=== PATIENT | female | born 1925 | race Caucasian/White ===

== ENCOUNTER 2017-04-12 17:41 | Emergency (ER) | payer MEDICARE, BC ==
[2017-04-12] MEDS ORDERED: Haloperidol INJ IV/IM* 5 MG/ML AMP IM ONE (18:13)
[2017-04-12] MEDS ORDERED: LORazepam INJ* 2 MG/ML 1 ML VIAL IM ONE (18:13)
[2017-04-12] MEDS ORDERED: LORazepam INJ* 2 MG/ML 1 ML VIAL ONE (18:14)
[2017-04-12] MEDS ORDERED: Haloperidol INJ IV/IM* 5 MG/ML AMP ONE (18:14)
--- NOTE | 2017-04-12 20:02 | RAD ---
INDICATION: Head injury. COMPARISON: There are no prior studies available for comparison. TECHNIQUE: Contiguous axial sections of the brain were obtained from the skull base to the vertex without contrast. FINDINGS: The ventricles, cisterns and sulci are enlarged consistent with diffuse atrophy. There are small areas of decreased density in the subcortical and periventricular white matter suggestive of mild chronic small vessel ischemic changes. No other focal abnormality or mass effect is seen. There is no evidence for hemorrhage. No significant focal osseous abnormality is seen. The visualized portion of the paranasal sinuses and mastoid air cells appear clear. IMPRESSION: NO EVIDENCE FOR ACUTE INTRACRANIAL ABNORMALITY.
--- NOTE | 2017-04-12 20:06 | RAD ---
INDICATION: Trauma. COMPARISON: There are no prior studies available for comparison. TECHNIQUE: Contiguous axial sections were obtained from the skull base through the T1 vertebra. Images were reconstructed in the sagittal and coronal planes. FINDINGS: There is straightening of the cervical spine with loss of the normal cervical lordosis. No prevertebral soft tissue swelling or fracture is seen. At the C1-C2 level there is severe osteoarthritic change in the facet joint on the left side. There is mild spinal canal narrowing on the left side. At the C2-C3 level there is mild posterior uncinate process spurring. No significant spinal canal narrowing is present. There is moderate neural foraminal narrowing on the right side. At the C3-C4 level there is mild posterior uncinate process spurring. No significant spinal canal narrowing is present. There is moderate to severe bilateral neural foraminal narrowing. At the C4-C5 level there is mild posterior uncinate process spurring. There is mild spinal canal narrowing and moderate to severe bilateral neural foraminal narrowing. At C5-C6 level there is moderate posterior uncinate process spurring. There is mild spinal canal narrowing and moderate bilateral neural foraminal narrowing. At the C6-C7 level there is mild posterior uncinate process spurring. No significant spinal canal narrowing is present. There is mild to moderate bilateral neural foraminal narrowing. IMPRESSION: 1. STRAIGHTENING OF THE CERVICAL SPINE, NO EVIDENCE FOR FRACTURE OR SUBLUXATION. 2. MODERATE DIFFUSE CERVICAL SPONDYLOSIS.
--- NOTE | 2017-04-12 20:26 | ED ---
Andrea Sky Alfonso, scribed for Owen Dumont MD on 04/12/17 at 1845 . 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 The patient rates the pain 0/10 in severity. Symptoms aggravated by nothing. Symptoms alleviated by nothing. Padder reports agitation and confusion, and hematoma to left temporal lobe. Padder denies seizure, laceration, pain, dyspnea, syncope, nausea and LOC. PMHx includes dementia. - History Of Current Complaint Chief Complaint: EDHeadInjury Stated Complaint: FALL Time Seen by Provider: 04/12/17 18:00 Hx Obtained From: Family/[facility] - [facility] Hx From Patient Unobtainable Due To: Dementia Mechanism Of Injury: Fall From Height Of: Onset/Duration: Started Hours Ago Onset of Pain: Post Accident Severity Currently: Mild Pain Intensity: 0 Pain Scale Used: 0-10 Numeric Location of Head Injury: Temporal - left temporal lobe Associated Signs And Symptoms: Other: - Padder reports agitation and confusion, and hematoma to left temporal lobe. Padder denies seizure, laceration, pain, dyspnea, syncope, nausea and LOC. - Allergies/Home Medications Allergies/Adverse Reactions: Allergies Allergy/AdvReac Type Severity Reaction Status Date / Time Atorvastatin [From Lipitor] Allergy Unknown Verified 04/12/17 18:24 Reaction Details Home Medications: Home Medications Acetaminophen TAB* [Tylenol TAB*] 650 mg PO BID PRN 04/12/17 [History Confirmed 04/12/17] Aspirin EC Low Dose* [Ecotrin EC Low Dose 81 MG*] 81 mg PO DAILY 04/12/17 [ History Confirmed 04/12/17] Atenolol TAB* [Tenormin TAB* 25 MG] 25 mg PO DAILY 04/12/17 [History Confirmed 04/12/17] Divalproex Sprinkle CAP* [Depakote Sprinkle CAP*] 250 mg PO BID 04/12/17 [ History Confirmed 04/12/17] Ferrous Sulfate TAB* 325 mg PO DAILY 04/12/17 [History Confirmed 04/12/17] Polyethylene Glycol 3350* [Miralax*] 17 gm PO DAILY 04/12/17 [History Confirmed 04/12/17] QUEtiapine TAB* [SEROquel TAB*] 200 mg PO BID 04/12/17 [History Confirmed ] traZODone TAB* [Desyrel TAB*] 25 mg PO Q8HR PRN 04/12/17 [History Confirmed ] traZODone TAB* [Desyrel TAB*] 50 mg PO DAILY PRN 04/12/17 [History Confirmed ] PMH/Surg Hx/FS Hx/Imm Hx Opthamlomology History: Denies: Hx Legally Blind EENT History: Denies: Hx Deafness Neurological History: Reports: Hx Dementia Infectious Disease History: No Infectious Disease History: Denies: Traveled Outside the [place] in Last 30 Days - Family History Known Family History: Positive: Unknown - Dementia - Social History Lives: [facility] [place] Alcohol Use: None Substance Use Type: Reports: None Hx Tobacco Use: No Review of Systems Positive: Other - Negative dyspena Negative: Nausea Positive: Other - Left temporal hematoma, fall; negative pain Skin: Negative - laceration Neurological: Other - Head trauma; negative seizure, LOC, and syncope Psychological: Other - Dementia, confusion and agitation All Other Systems Reviewed And Are Negative: Yes Physical Exam Triage Information Reviewed: Yes Vital Signs On Initial Exam: Initial Vitals Temp Pulse Resp BP Pulse Ox 99.9 F 75 20 113/57 96 04/12/17 17:52 04/12/17 17:52 04/12/17 17:52 04/12/17 17:52 04/12/17 17:52 Vital Signs Reviewed: Yes Completion Of Physical Exam Limited Due To: Dementia Skin: Positive: Skin Color Reflects Adequate Perfusion Head/Face: Positive: Other - bruise left frontal area Eyes: Positive: EOMI ENT: Positive: Normal ENT inspection Neck: Positive: Nontender Respiratory/Lung Sounds: Positive: Clear to Auscultation, Breath Sounds Present Cardiovascular: Positive: RRR. Negative: Murmur Abdomen Description: Positive: Nontender Musculoskeletal: Positive: Strength/ROM Intact Neurological: Positive: Sensory/Motor Intact, CN Intact II-III Psychiatric: Positive: Anxious - Dionisio Coma Scale Best Eye Response: 4 - Spontaneous Best Motor Response: 6 - Obeys Commands Best Verbal Response: 4 - Confused - but demented and agitated; her baseline Diagnostics - Vital Signs Vital Signs Temp Pulse Resp BP Pulse Ox 04/12/17 18:18 28 04/12/17 17:52 99.9 F 75 20 113/57 96 - Laboratory Lab Statement: Any lab studies that have been ordered have been reviewed, and results considered in the medical decision making process. Head Injury Course/Dx Course Of Treatment: 89 yr old with new environment, new long term of two days and ER visit, with baseline dementia. She is comfortable now. her niece is here and states she seems fine now to her. The CTs are negative. She will be discharged to home in good condition. - Diagnoses Provider Diagnoses: Head injury Discharge - Discharge Plan Condition: Good Disposition: CUSTODIAL FACILITY Patient Education Materials: Head Injury (ED) Referrals: Summer Bradford MD [Primary Care Provider] - The documentation as recorded by the Andrea foy Alfonso accurately reflects the service I personally performed and the decisions made by , Owen Dumont MD.
--- NOTE | 2017-04-12 20:32 | ED ---
Andrea Sky Alfonso, scribed for Owen Dumont MD on 04/12/17 at 2027 . Progress - Results/Orders Results/Orders: CT spine reveals 1. STRAIGHTENING OF THE CERVICAL SPINE, NO EVIDENCE FOR FRACTURE OR SUBLUXATION. 2. MODERATE DIFFUSE CERVICAL SPONDYLOSIS. ED physician has reviewed this radiology report and agrees. Brain CT reveals NO EVIDENCE FOR ACUTE INTRACRANIAL ABNORMALITY. ED physician has reviewed this radiology report and agrees. Course/Dx - Course Course Of Treatment: 89 yr old with new environment, new group home of two days and ER visit, with baseline dementia. She is comfortable now. her niece is here and states she seems fine now to her. The CTs are negative. She will be discharged to home in good condition. - Diagnoses Provider Diagnoses: Head injury The documentation as recorded by the Andrea foy Alfonso accurately reflects the service I personally performed and the decisions made by Tim brasher Walter, MD.
[2017-04-12 20:54] VITALS: BP 121/66
== END 2017-04-12 20:53 ==
LOC: ED 17:41
DX: S09.90XA Unspecified injury of head, initial encounter (principal); M47.9 Spondylosis, unspecified; W19.XXXA Unspecified fall, initial encounter; Y93.9 Activity, unspecified; Y92.9 Unspecified place or not applicable
CPT/HCPCS: 70450; 72125; 96372; 99284; J1630; J2060